=== PATIENT | male | born 1985 | race Caucasian/White ===

== ENCOUNTER 2025-04-01 20:34 | Emergency (ER) | payer BC, SELFPAY ==
[2025-04-01 20:46] VITALS: BP 127/86; PULSE 88; RESP 20; TEMP 36.8; O2SAT 96; BMI 31.3
[2025-04-01] MEDS: LIDOCAINE 1%-EPI 1:100,000 3 ML INFILTRATI (21:09)
--- OUTSIDE RECORDS SUMMARY | 2025-04-01 21:15 | XMS_ITS | Clinical Summary ---
Author Organization [facility] Address [address] [place] [id number] Care Team Providers Care Extracorporeal Circulation Specialist Name Role Phone Romulo Angelo MD Primary Care Provider [phone] Allergies Active Allergy Reactions Criticality Noted Date Comments Peanut Hives,Angioedema 01/20/2013 Medications EPINEPHrine (EPIPEN) 0.3 mg/0.3 mL injectionIndic ations:Peanut allergy Inject 0.3 mg intramuscular one time if needed for Allergic Reaction. 1 pen 1 1 Active Active Problems Problem Noted Date Diagnosed Date Peanut allergy 01/27/2013 Immunizations Immunization Administration Dates Next Due DT (Age < 7 years) 05/02/1988 DTaP 1986 DTaP-HIB (TriHIBIT) 02/23/1987 [id number] (Pediarix) 05/25/1987 HIB-HepB (Comvax) 04/30/2000 HepA-HepB (Twinrix) 12/09/2000 Hepatitis B (Peds) 03/18/2000 Influenza, IIV3 (Age >=3 years) 05/19/2019 Influenza, IIV4 07/30/2018,10/18/2017 MMR 02/18/1992,01/05/1988 Td (Age >=7 Years) 02/18/1992 Tdap 01/27/2013 Tetanus Toxoid 04/03/1999 Family History Medical History Relation Name Comments Diabetes Father Other Father diverticulitis Cancer-colon Maternal Grandfather Lung cancer Maternal Grandfather Stroke Maternal Grandfather Cancer-breast Maternal Grandmother Diabetes Maternal Grandmother Hypertension Mother Cancer-colon Other Maternal cousin Cancer-prostate No Family History Heart attack No Family History Relation Name Status Comments Father Maternal Grandfather Maternal Grandmother Mother Other Social History Tobacco Use Types Packs/Day Years Used Date Smoking Tobacco: Never Smokeless Tobacco: Never Tobacco Cessation:Counseling Given: Yes Alcohol Use Standard Drinks/Week Comments Yes 0 (1 standard drink = 0.6 oz pur e alcohol) 6 drinks per week, or less PHQ-2 Answer Date Recorded PHQ-2 Score 0 10/21/2018 Sex and Gender Information Value Date Recorded Sex Assigned at Not on file Legal Sex Male 4:26 PM CDT Gender Identity Not on file Sexual Orientation Not on file 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 Not on file Not on file Obstetrics History Last Filed Vital Signs Vital Sign Reading Time Taken Comments Blood Pressure 126/86 07/29/2019 2:35 PM BOOM CRANE OPERATOR Pulse 88 07/29/2019 2:09 PM BOOM CRANE OPERATOR Temperature 36.6 C (97.8 F) 07/30/2018 8:17 AM BOOM CRANE OPERATOR Respiratory Rate - - Oxygen Saturation 99% 07/29/2019 2:09 PM BOOM CRANE OPERATOR Inhaled Oxygen Concentration - - Weight 107.2 kg (236 lb 6.4 oz) 07/29/2019 2:09 PM BOOM CRANE OPERATOR Height 182.9 cm (6') 07/29/2019 2:09 PM BOOM CRANE OPERATOR Body Mass Index 32.06 07/29/2019 2:09 PM BOOM CRANE OPERATOR Plan of Treatment Health Maintenance Due Date Last Done Comments BMI (ht and wt on same day) for age 18+ 07/29/2020 07/29/2019, 07/30/2018, 08/10/2016 Depression screening for age 12+ 07/30/2020 07/30/2019, 07/29/2019, 07/30/2018, Additional history exists Tetanus booster 01/27/2023 01/27/2013, 02/18/1992 COVID-19 vaccine series ( season) 2024 Lipids for age 35-44 07/29/2024 07/29/2019, 07/30/2018, 08/10/2016, Additional history exists Influenza Vaccine (#1) 2025 9, 07/30/2018, 10/18/2017 Hepatitis B series for 19+ Completed 12/09, 04/30/2000, 03/18/2000, Additional history exists HIV for age 15-65 Completed 05/22/2013 Hepatitis C screening for age 18-79 Completed 05/22/2013 Pneumococcal series for age 6-49 Aged Out No longer eligible based on patient's age to complete this topic Procedures Procedure Name Priority Date/Time Associated Diagnosis Comments LIPID PANEL W REFLEX MEASURED LDL Routine 07/29/2019 3:00 PM BOOM CRANE OPERATOR Lipid screening ANTI HIV 1/2 Routine 05/22/2013 6:19 PM CDT Exposure to body fluids by contaminated hypodermic needle stick ANTI HCV Routine 05/22/2013 6:19 PM CDT Exposure to body fluids by contaminated hypodermic needle stick from Last 3 Months or Most Recently Relevant to Health Maintenance Results * LIPID PANEL W REFLEX MEASURED LDL (07/29/2019 3:00 PM BOOM CRANE OPERATOR) CHOLESTEROL,TOTAL 187 100 - 199 mg/dL 07/29/2019 7:53 PM BOOM CRANE OPERATOR [facility] TRIGLYCERIDES 108 <150 mg/dL 07/29/2019 7:53 PM BOOM CRANE OPERATOR [facility] HDL CHOLESTEROL 49 >40 mg/dL 9 7:53 PM BOOM CRANE OPERATOR [facility] NON-HDL CHOLESTEROL 138 <145 mg/dl 07/29/2019 7:53 PM BOOM CRANE OPERATOR [facility] CHOL/HDL RATIO 3.82 <4.50 07/29/2019 7:53 PM BOOM CRANE OPERATOR [facility] LDL CHOLESTEROL 116 <=130 mg/dL 07/29/2019 7:53 PM BOOM CRANE OPERATOR [facility] PROVIDER ORDERED STATUS RANDOM 07/29/2019 7:[address] [facility] Blood BLOOD SPECIMEN / Unknown Venipuncture / Unknown 07/29/2019 3:00 PM BOOM CRANE OPERATOR 07/29/2019 3:00 PM BOOM CRANE OPERATOR us Ephraim Bingham MD CHEMISTRY Final Re sult [facility] [address] [place] [address], [place] * ANTI HCV (05/22/2013 6:19 PM CDT) ANTI HCV Non-reacti [facility] Blood specimen (specimen) BLOOD SPECIMEN / Unknown 05/22/2013 6:19 PM CDT 05/22/2013 6:09 PM CDT Karsten Gutiérrez MD SEND OUTS Final R esult [facility] [place] [id number] [place] [id number] * ANTI HIV 1/2 (05/22/2013 6:19 PM CDT) ANTI HIV 1/2 Non-react ve [facility] Blood specimen (specimen) BLOOD SPECIMEN / Unknown 05/22/2013 6:19 PM CDT 05/22/2013 6:09 PM CDT us Karsten Gutiérrez MD SEND OUTS Final R esult [facility] [place] [address]IP [id number] [place] [id number] from Last 3 Months or Most Recently Relevant to Health Maintenance Insurance [facility] Care Teams Extracorporeal Circulation Specialist Relationship Specialty Start Date End Date Romulo Angelo MD [address] [facility] [id number] PCP - General Family Practice 11/26/16
--- NOTE | 2025-04-01 21:27 | ED.GENADULT ---
HPI - General Adult General Date Seen: 04/01/25 Chief complaint: Laceration/Wound Stated complaint: L finger lac Time Seen by Provider: 04/01/25 20:55 History of Present Illness HPI narrative: Patient is a 39-year-old generally healthy man here for evaluation of laceration to his left thumb. He was working on a stove that had an open metal edge, and sliced his thumb as he was trying to pull out some wires. He does not have any numbness or loss of function. Last tetanus 2012. Related Data Home Medications ?Medication ?Instructions ?Recorded ?Confirmed No Known Home Medications 04/01/25 04/01/25 Allergies Allergy/AdvReac Type Severity Reaction Status Date / Time peanuts Allergy Intermediate Uncoded 04/01/25 20:44 Exam Narrative: Exam Narrative: Vital signs reviewed In general, alert, nontoxic man. Extremities: Examination of the left thumb shows a 2 cm laceration over the dorsum of the thumb. A little bit of venous bleeding with exam. Distal CMS intact, he has full flexion extension at the IP joint. Const: Vital Signs, click to edit/add: Vital Signs - 24 hr 04/01/25 20:46 Temperature 98.3 F Pulse Rate [Pulse Oximeter] 88 Respiratory Rate 20 Blood Pressure [Ri ght Upper Arm] 127/86 Pulse Oximetry 96 Oxygen Delivery Me thod Room Air Course Course ED Course: Procedure note: Wound was anesthetized using lidocaine with epinephrine and explored without injury to deeper structures or evidence of foreign body. I closed this with 5 0 nylon, 5 simple interrupted superficial sutures, he tolerated this well without immediate complication. We discussed with kind of dressing to put on. 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 Return for signs of infection. Tetanus was updated. Suture removal in 7-10 days. Vital Signs Vital signs: Initial Vital Signs Temperature 98.3 F 04/01/25 20:46 Temperature Source Temporal Artery Scan 04/01/25 20:46 Pulse Rate 88 04/01/25 20:46 Respiratory Rate 20 04/01/25 20:46 Blood Pressure 127/86 04/01/25 20:46 Blood Pressure Mean 99 08/14/25 20:46 Pulse Oximetry 96 04/01/25 20:46 Oxygen Delivery Method Room Air 04/01/25 20:46 Vital Signs Temperature 98.3 F 04/01/25 20:46 Pulse Rate 88 04/01/25 20:46 Respiratory Rate 20 04/01/25 20:46 Blood Pressure 127/86 04/01/25 20:46 Pulse Oximetry 96 04/01/25 20:46 Oxygen Delivery Method Room Air 04/01/25 20:46 Temperature 98.3 F 04/01/25 20:46 Pulse Rate 88 04/01/25 20:46 Respiratory Rate 20 04/01/25 20:46 Blood Pressure 127/86 04/01/25 20:46 Pulse Oximetry 96 04/01/25 20:46 Oxygen Delivery Method Room Air 04/01/25 20:46 Medications Administered Medications: Discontinued Medications Generic Name Dose Route Start Last Admin Trade Name Austinq PRN Reason Stop Dose Admin Lidocaine/Epinephrine 3 ml 04/01/25 21:04 04/01/25 21:09 Lidocaine 1%-Epi 1:100,000 INFILTRATI 04/01/25 21:05 3 ml ONCE ONE Administration Discharge Plan Discharge Clinical Impression: Laceration of thumb Patient Disposition: Home, Self-Care Condition: Improved Instructions: Finger Laceration (ED) Additional Instructions: Suture removal in 7-10 days, when he feel like it looks completely healed. Tegaderm for tomorrow, but I would remove that after your work today and switch to a bandage. Keep some kind of ointment such as Aquaphor or Vaseline on the wound while it heals. For signs of infection or other concerns, return to the ER. Prescriptions: No Action No Known Home Medications Follow Up/Referrals: Provider,Not a Local [Primary Care Provider, Family Practice] Stand Alone Forms: MyHealth Info Instructions
[2025-04-01] MEDS: TETANUS/DIPHTH/PERTUSSIS 0.5 ML SYRINGE IM (21:44)
== END 2025-04-01 21:47 | disposition home or self-care (01) ==
PROVIDERS: Emergency Provider Emergency Medicine
DX: S61.012A Laceration without foreign body of left thumb without damage to nail, initial encounter (principal); W45.8XXA Other foreign body or object entering through skin, initial encounter; Y99.0 Civilian activity done for income or pay; Z23 Encounter for immunization
CPT/HCPCS: 12001; 90471; 90715; 99283; 99284